=== PATIENT | female | born 1980 | race African-American/Black ===

== ENCOUNTER → 2020-12-17 | Outpatient (CLI) | payer OTHER ==
[2020-12-17 15:56] LABS: BASO # 0.1 x10^3/uL (0.0-0.2); BASO % 1 % (0-3); EOS # 0.2 x10^3/uL (0.0-0.7); EOS % 3 % (0-3); HEMOGLOBIN 11.2 g/dL (12.0-15.5); LYMPH # 2.5 x10^3/uL (1.0-4.8); LYMPH % 28 % (24-48); MEAN CORPUSCULAR HEMOGLOBIN 20 pg (25-35); MEAN CORPUSCULAR HGB CONC 31 g/dL (31-37); MEAN CORPUSCULAR VOLUME 65 fL (79-100); MONO # 0.6 x10^3/uL (0.0-1.1); MONO % 7 % (0-9); NEUT # 5.4 x10^3/uL (1.8-7.7); NEUT % 62 % (31-73); PLATELET COUNT 343 x10^3/uL (140-400); RED BLOOD COUNT 5.56 x10^6/uL (3.50-5.40); RED CELL DISTRIBUTION WIDTH 19.8 % (11.5-14.5); WHITE BLOOD COUNT 8.7 x10^3/uL (4.0-11.0)
[2020-12-17 17:14] LABS: MICROCYTOSIS SLIGHT; PLT ESTIMATE ADEQUATE (ADEQUATE); SPHEROCYTES OCC; TARGET CELLS OCC
[2020-12-17 17:15] LABS: OVALOCYTES OCC
[2020-12-20 07:07] LABS: CARDIOLIPIN ANTIBODIES SEE SEPARATE REPORT
== END ==
LOC: ONCLAB 14:58
PROVIDERS: ATTEND Internal Medicine Hematology & Oncology
DX: D57.3 Sickle-cell trait (principal)
CPT/HCPCS: 36415; 85025; 86146; 86147

== ENCOUNTER → 2021-01-16 | Outpatient (CLI) | payer OTHER | LOC: ONCLAB 09:58 | PROVIDERS: ATTEND Internal Medicine Hematology & Oncology | DX: D57.3 Sickle-cell trait (principal); I26.94 Multiple subsegmental thrombotic pulmonary emboli without acute cor pulmonale | CPT/HCPCS: 81241; 85240 ==

== ENCOUNTER → 2021-05-31 | Outpatient (CLI) | payer OTHER | LOC: ONCLAB 10:21 | PROVIDERS: ATTEND Internal Medicine Hematology & Oncology | DX: I26.94 Multiple subsegmental thrombotic pulmonary emboli without acute cor pulmonale (principal); D57.3 Sickle-cell trait | CPT/HCPCS: 85240; 85379 ==